=== PATIENT | female | born 1995 | race Caucasian/White ===

== ENCOUNTER 2020-08-31 14:59 | Emergency (ER) | payer OTHER ==
[2020-08-31 18:58] LABS: HEMOGLOBIN 12.1 gm/dl (12.3-15.3); RED BLOOD COUNT 4.43 M/UL (4.00-5.10); WHITE BLOOD COUNT 17.2 K/UL (4.5-11.0)
[2020-08-31 19:22] LABS: BUN/CREATININE RATIO 13 (0-10)
[2020-08-31] MEDS ORDERED: BACTRIM DS TAB1 EACH PO ×2 (21:34→21:55)
[2020-08-31] MEDS ORDERED: CEPHALEXIN500 MG PO ×2 (21:34→21:55)
[2020-08-31] MEDS ORDERED: ZOFRAN ODT 4 MG4 MG SL ×2 (21:34→21:55)
== END 2020-08-31 21:45 | disposition home or self-care (01) ==
LOC: ER1 14:59
PROVIDERS: Physician Assistant Medical
DX: R10.31 Right lower quadrant pain (principal); Z90.49 Acquired absence of other specified parts of digestive tract; F17.210 Nicotine dependence, cigarettes, uncomplicated
CPT/HCPCS: 80053; 81001; 83690; 84703; 85025; 87086; 96374; 96375; 99284; J0696; J2270; J2405; J7120; Q9967